=== PATIENT | female | born 1935 | race African-American/Black ===

== ENCOUNTER 2017-08-28 20:22 | Emergency (ER) | payer OTHER ==
[~2017-08-28] VITALS: Ht 165.1 cm; Wt 72.6 kg
[2017-08-28 21:26] LABS: Basophils # (auto) 0.1 uL; Basophils % (auto) 1.1 % (0.0-2.0); Eosinophils # (auto) 0.3 uL; Eosinophils % (auto) 5.1 % (0.0-7.0); Hematocrit 34.2 % (36.0-46.0); Hemoglobin 11.5 g/dL (12.2-16.2); Lymphocytes # (auto) 1.6 uL; Lymphocytes % (auto) 27.8 % (10.0-50.0); Mean Corpuscular Hemoglobin 31.6 pg (28.0-32.0); Mean Corpuscular Hgb Conc. 33.7 g/dL (32.0-36.0); Mean Corpuscular Volume 93.9 fL (80.0-100.0); Mean Platelet Volume 9.7 fL (6.9-10.8); Monocytes # (auto) 0.5 uL; Monocytes % (auto) 8.3 % (0.0-12.0); Neutrophils # (auto) 3.2 uL; Neutrophils % (auto) 57.7 % (37.0-80.0); Platelet Count (auto) 194 10^3/uL (140-450); Red Cell Distribution Width 13.8 % (11.8-14.3); White Blood Cell 5.6 10^3/uL (4.4-10.8)
[2017-08-28 21:37] LABS: Albumin 3.3 g/dL (3.4-5.0); BUN/Creatinine Ratio 25.3; Magnesium 1.7 mg/dL (1.6-2.6); Potassium 3.8 mmol/L (3.5-5.1)
[2017-08-28 21:40] LABS: Bilirubin, Total 0.5 mg/dL (0.2-1.0); Total Protein 7.7 g/dL (6.4-8.2)
[2017-08-28 21:41] LABS: INR 0.95 (0.9-1.15); Partial Thromboplastin Time 23.2 sec (22.64-33.71); Prothrombin Time 10.3 sec (9.37-12.3)
[2017-08-28 22:03] LABS: B-Type Natriuretic Peptide 144.72 pg/mL (0-100)
[2017-08-28 22:06] LABS: Temperature: 22.8 C (20.0-25.0)
[2017-08-28 23:43] VITALS: BP 148/59
== END 2017-08-29 00:48 | disposition home or self-care (01) ==
LOC: ER 20:22
DX: R07.9 Chest pain, unspecified (principal); K29.70 Gastritis, unspecified, without bleeding; K21.9 Gastro-esophageal reflux disease without esophagitis; I10 Essential (primary) hypertension; E11.9 Type 2 diabetes mellitus without complications; E78.5 Hyperlipidemia, unspecified; Z88.6 Allergy status to analgesic agent
CPT/HCPCS: 36415; 71010; 76705; 80053; 83735; 83880; 84443; 84484; 85025; 85610; 85730; 93005